=== PATIENT | female | born 1985 | race African-American/Black ===

== ENCOUNTER 2018-11-26 20:56 | Emergency (ER) | payer BC, OTHER ==
[~2018-11-26] VITALS: Ht 167.6 cm; Wt 74.4 kg
[~2018-11-26 20:56] MED LIST: CARAFATE1 GM/10 ML PO; HYDROCHLOROTH12.5 M1 PO; IBUPROFEN 600600 M1 PO; LORTABELXR PO; NABUMETONE 750750 M1 PO; NOHOMEMEDICATIONS; NORCO 5-325 TA1 EACH PO; NORTRIPTYLINE H10 M1 PO; PERCOCET PO; TRAMADOL 50 MG50 MG PO
[2018-11-26 21:10] LABS: URINE BILIRUBIN NEGATIVE (Negative); URINE BLOOD NEGATIVE (Negative); URINE CLARITY CLEAR; URINE COLOR YELLOW; URINE GLUCOSE-RANDOM* NEGATIVE (Negative); URINE KETONES NEGATIVE (Negative); URINE LEUKOCYTES-REFLEX NEGATIVE (Negative); URINE NITRITE-REFLEX NEGATIVE (Negative); URINE PROTEIN (DIPSTICK) TRACE (Negative); URINE SPECIFIC GRAVITY >= 1.030 (1.005-1.035)
[2018-11-26 21:28] LABS: BASOPHILS 0.9 % (0.0-2.0); EOSINOPHILS 2.9 % (0.0-3.0); HEMATOCRIT 33.8 % (37.0-47.0); HEMOGLOBIN 11.3 gm/dL (12.0-15.0); LYMPHOCYTES 42.3 % (24.0-44.0); MCH 28.1 pg (26.0-34.0); MCHC 33.5 g/dL (28.0-37.0); MCV 83.9 fL (80.0-100.0); MONOCYTES 10.8 % (1.0-8.0); PLATELET COUNT 220 thou/uL (150-400); POLYS 43.1 % (36.0-66.0); RBC 4.03 mil/uL (4.20-5.00); RDW 14.5 % (10.5-14.5); WBC 4.7 thou/uL (4.0-11.0)
[2018-11-26 21:34] LABS: CALCIUM 8.8 mg/dL (8.5-10.1); CREATININE 1.1 mg/dL (0.6-1.0); POTASSIUM 3.9 mmol/L (3.5-5.1)
[2018-11-26 21:40] LABS: ALBUMIN 3.3 g/dL (3.4-5.0); TOTAL BILIRUBIN 0.2 mg/dL (<0.1-1.0); TOTAL PROTEIN 7.2 g/dL (6.4-8.2)
[2018-11-26] MEDS ORDERED: PROTONIX40 M2 PO (23:49)
[2018-11-26] MEDS ORDERED: ULTRAM 50MG TAB50 MG PO (23:49)
[2018-11-26] MEDS ORDERED: ZOFRAN ODT4 MG PO (23:49)
[2018-11-27 00:07] VITALS: BP 140/92
== END 2018-11-27 00:10 | disposition home or self-care (01) ==
LOC: ER 20:56
PROVIDERS: Emergency Medicine
DX: R10.31 Right lower quadrant pain (principal); R10.11 Right upper quadrant pain; Z90.10 Acquired absence of unspecified breast and nipple; Z90.49 Acquired absence of other specified parts of digestive tract

== ENCOUNTER 2018-12-12 17:39 | Emergency (ER) | payer BC, OTHER ==
[~2018-12-12] VITALS: Ht 167.6 cm; Wt 73.9 kg
[~2018-12-12 17:39] MED LIST changes: +PROTONIX40 M2 PO; +ULTRAM 50MG TAB50 MG PO; +ZOFRAN ODT4 MG PO
[2018-12-12 17:40] VITALS: BP 139/91
[2018-12-12 19:04] LABS: URINE BILIRUBIN NEGATIVE (Negative); URINE BLOOD NEGATIVE (Negative); URINE CLARITY CLEAR; URINE COLOR YELLOW; URINE GLUCOSE-RANDOM* NEGATIVE (Negative); URINE KETONES NEGATIVE (Negative); URINE LEUKOCYTES NEGATIVE (Negative); URINE NITRITE NEGATIVE (Negative); URINE PROTEIN (DIPSTICK) NEGATIVE (Negative); URINE SPECIFIC GRAVITY 1.025 (1.005-1.035); URINE UROBILINOGEN 0.2 E.U./dl (0.2-1.0)
== END 2018-12-12 20:30 | disposition left against medical advice (07) ==
LOC: ER 17:39
PROVIDERS: Physician Assistant
DX: Z53.21 Procedure and treatment not carried out due to patient leaving prior to being seen by health care provider (principal)